=== PATIENT | female | born 1965 | race African-American/Black ===

== ENCOUNTER 2018-11-08 13:38 | Emergency (ER) | payer OTHER ==
[~2018-11-08] VITALS: Ht 175.3 cm; Wt 71.2 kg
[2018-11-08 13:46] VITALS: BP 129/97
== END 2018-11-08 14:37 | disposition home or self-care (01) ==
LOC: ER 13:38
DX: S01.01XA Laceration without foreign body of scalp, initial encounter (principal); Z90.710 Acquired absence of both cervix and uterus; W01.198A Fall on same level from slipping, tripping and stumbling with subsequent striking against other object, initial encounter; Y92.89 Other specified places as the place of occurrence of the external cause; Y99.0 Civilian activity done for income or pay; Y99.8 Other external cause status

== ENCOUNTER 2018-11-12 16:17 | Emergency (ER) | payer OTHER ==
[~2018-11-12] VITALS: Ht 172.7 cm; Wt 77.1 kg
[2018-11-12 16:18] VITALS: BP 131/95
[2018-11-12] MEDS ORDERED: MOBIC15 MG PO (16:52)
== END 2018-11-12 17:09 | disposition home or self-care (01) ==
LOC: ER 16:17
DX: Z48.00 Encounter for change or removal of nonsurgical wound dressing (principal); Z90.710 Acquired absence of both cervix and uterus; Z88.0 Allergy status to penicillin

== ENCOUNTER 2018-11-24 12:59 | Emergency (ER) | payer OTHER ==
[~2018-11-24] VITALS: Ht 172.7 cm; Wt 77.1 kg
[2018-11-24 12:59] VITALS: BP 112/72
[~2018-11-24 12:59] MED LIST: MOBIC15 MG PO
== END 2018-11-24 13:17 | disposition home or self-care (01) ==
LOC: ER 12:59
DX: Z48.02 Encounter for removal of sutures (principal); Z90.710 Acquired absence of both cervix and uterus; Z88.0 Allergy status to penicillin